=== PATIENT | female | born 1970 | race Caucasian/White ===

== ENCOUNTER 2017-01-08 17:03 | Emergency (ER) | payer OTHER ==
--- NOTE | 2017-01-08 18:10 | ED NURSING NOTES ---
Clinical Report - Nurses [facility] [address] [place] [address] 01/08/2017 17:05 Patient: KAYE POLLOCK TRIAGE Triage time 1750. Acuity: LEVEL 5. Chief Complaint: RIGHT EAR PAIN and (URI). Alert. No acute distress. (appears anxious, unable to sit still, unable to stay on task). --18:01 Angella Eli 17:57 01/08/17. BP: 152/97. HR: 80. RR: 18. O2 saturation: 100%. Temp: 98.4 F. Pain level now 9/10. --18:01 Angella Eli. Weight: 62.7 kg. Height/Length: 63 inches. BMI: 24.5. --17:57 Angella Eli. Medications Antidpressant. --17:58 Angella Eli. Allergies No Known Drug Allergy. --17:58 Angella Eli. History Arrived by private vehicle. Historian: patient. Accompanied by family. Onset. (2 hours ago). 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 PAST MEDICAL HX: Immunizations: up-to-date. SOCIAL HX: Light tobacco smoker (cigarette)- less than 1/2 a pack per day. Occasional alcohol use. FALL RISK ASSESSMENT: Fall risk assessment completed. No fall risk identified. NUTRITIONAL RISK ASSESSMENT: The nutritional risk assessment revealed no deficiencies. FUNCTIONAL ASSESSMENT: Functional assessment: no impairments noted. LEARNING NEEDS ASSESSMENT: The learning needs assessment revealed no barriers. SKIN INTEGRITY ASSESSMENT: Skin integrity risk assessment completed. No skin integrity risk identified. --18:01 Angella Eli. PROBLEMS: Depression. --17:59 Angella Eli. ADDITIONAL SURGERIES: Appendectomy. . Tubal Ligation. --17:59 Angella Eli. Interventions ID band on patient. To treatment room. --18:01 Angella Eli. PHYSICAL ASSESSMENT Ambulatory to room. GENERAL / NEURO / PSYCH: Alert. Appears anxious. HEENT: No facial asymmetry noted. Pupils equal, round and reactive to light. ( ear exam deferred to Provider). RESPIRATORY: Respirations not labored. CVS: Capillary refill less than 2 seconds. SKIN: Skin is warm and dry. --18:01 Angella Eli. NURSING PROGRESS NOTES Call light placed in reach. Bed placed in lowest position. Brakes of bed on. Patient ready for evaluation- chart flagged. --18:01 Angella Eli 18:21 01/08/2017 Toradol (Ketorolac Tromethamine) IM 60 mg given. Given in the right gluteus tara. Allergies verified and confirmed 5 rights. --18:21 Angella Eli. DISPOSITION / DISCHARGE Departure time: 1820. Condition at departure: unchanged and stable. Discharge instructions provided and reviewed with the patient. Reviewed medication(s). Patient verbalized understanding. Written instructions provided in [place]. The patient was discharged by the nurse practitioner. She was discharged home and accompanied by family. She left the Emergency Department ambulatory and via private vehicle. Patient driving. --18:23 Angella Eli. Locked/Released at 01/08/2017 18:23 by Angella Eli,
--- NOTE | 2017-01-08 18:10 | ED CLINICAL REPORT ---
Clinical Report - Physicians/Mid Levels [facility] [address] [place] [address] 01/08/2017 17:05 Patient: KAYE POLLOCK Time Seen: 17:53; initial patient contact, initial documentation, patient care assumed. Arrived- By private vehicle. Historian- patient. HISTORY OF PRESENT ILLNESS Chief Complaint: COUGH, SORE THROAT and SINUS PAIN. This started about 10 days ago and is still present. The illness is described as moderate. The patient has had a cough, nasal congestion, sinus pressure, sinus drainage and a nasal discharge. She has had moderate amounts of thick, yellow, green sputum. No difficulty breathing, chest pain or fever. 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 Additional history - No known contact with a sick individual. No recent travel. Similar symptoms previously: None. Recent medical care: Not recently seen/assessed. REVIEW OF SYSTEMS The patient has had a headache. All systems otherwise negative, except as recorded above. PAST HISTORY See nurses notes. PROBLEMS: Depression. --17:59 Angella Eli. ADDITIONAL SURGERIES: Appendectomy. . Tubal Ligation. --17:59 Angella Eli. SOCIAL HISTORY Light tobacco smoker. Occasional alcohol use. Not exposed to second-hand smoke at home. No drug use. No recent travel. Is a local resident. FAMILY HISTORY Negative. ADDITIONAL NOTES The nursing notes have been reviewed with agreement regarding the chief complaint, HPI, ROS, PMH and patient medications and allergies. PHYSICAL EXAM Vital Signs: 01/08/2017 17:57 BP: 152/97. HR: 80. RR: 18. O2 saturation: 100%. Temp: 98.4 F. Have been reviewed as abnormal and appear to be correct. Hypertensive. Heart rate normal. Respiratory rate normal. Temperature normal. Oxygen saturation normal. Appearance: Alert. No acute distress. Eyes: Pupils equal, round and reactive to light. Eyes normal inspection. ENT: Ears not normal. Right TM reveals bulging and severe erythema. No abnormality of left ear. Nose normal. Pharynx normal. Uvula midline. Neck: Normal inspection. Neck supple. CVS: Normal heart rate and rhythm. Heart sounds normal. Pulses normal. Respiratory: No respiratory distress. Breath sounds normal. Back: Normal inspection. Skin: Skin warm and dry. Normal skin color. No rash. Normal skin turgor. Extremities: Extremities exhibit normal ROM. No lower extremity edema. Neuro: Oriented X 3. No motor deficit. No sensory deficit. PROGRESS AND PROCEDURES Patient counseled in person regarding the patient's stable condition and diagnosis. 18:09. Differential Diagnosis: Other possible considerations: flu, uri, viral illness, sinusitis, bronchitis, pneumonia, aoe, aom. Above considerations are based on history and physical exam. Differential diagnosis was discussed with patient. Disposition: Discharged home in good and improved condition (18:09). Condition: good and stable. CLINICAL IMPRESSION Acute sinusitis Acute suppurative right otitis media. No perforation of right tympanic membrane. INSTRUCTIONS Drink plenty of fluids. Warnings: GENERAL WARNINGS: Return or contact your physician immediately if your condition worsens or changes unexpectedly, if not improving as expected, or if other problems arise. Specifically return if problem worsens. Prescription Medications: Nasacort nasal spray: 2 sprays in each nostril once daily as needed for allergies. Dispense one (1) unit. No refills. Substitution is permissible. Amoxicillin 500 mg tablets: Take 1 orally every 8 hours for 10 days. Dispense thirty (30). No refills. Motrin 800 mg tablets: take 1 tablet orally every 8 hours as needed for pain. Dispense thirty (30). No refills. Substitution is permissible. OTC Medications: Sudafed 120 mg extended release tabs (available over the counter): take 1 tablet orally every 12 hours for 5 days. Dispense ten (10). No refill. Follow-up: Follow up with your doctor in about three days even if well. Call for an appointment. Summary of care provided to patient. Screening today revealed the patient's blood pressure to be in the hypertensive range. The patient should follow up with a primary care provider for blood pressure management. Understanding of the discharge instructions verbalized by patient. (Electronically signed by Isabel Jones A.R.N.P. 01/08/2017 18:33)
--- NOTE | 2017-01-08 18:10 | ED NURSING NOTES ---
Clinical Report - Nurses [facility] [address] [place] [address] 01/08/2017 17:05 Patient: KAYE POLLOCK TRIAGE Triage time 1750. Acuity: LEVEL 5. Chief Complaint: RIGHT EAR PAIN and (URI). Alert. No acute distress. (appears anxious, unable to sit still, unable to stay on task). --18:01 Angella Eli 17:57 01/08/17. BP: 152/97. HR: 80. RR: 18. O2 saturation: 100%. Temp: 98.4 F. Pain level now 9/10. --18:01 Angella Eli. Weight: 62.7 kg. Height/Length: 63 inches. BMI: 24.5. --17:57 Angella Eli. Medications Antidpressant. --17:58 Angella Eli. Allergies No Known Drug Allergy. --17:58 Angella Eli. History Arrived by private vehicle. Historian: patient. Accompanied by family. Onset. (2 hours ago). 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 PAST MEDICAL HX: Immunizations: up-to-date. SOCIAL HX: Light tobacco smoker (cigarette)- less than 1/2 a pack per day. Occasional alcohol use. FALL RISK ASSESSMENT: Fall risk assessment completed. No fall risk identified. NUTRITIONAL RISK ASSESSMENT: The nutritional risk assessment revealed no deficiencies. FUNCTIONAL ASSESSMENT: Functional assessment: no impairments noted. LEARNING NEEDS ASSESSMENT: The learning needs assessment revealed no barriers. SKIN INTEGRITY ASSESSMENT: Skin integrity risk assessment completed. No skin integrity risk identified. --18:01 Angella Eli. PROBLEMS: Depression. --17:59 Angella Eli. ADDITIONAL SURGERIES: Appendectomy. . Tubal Ligation. --17:59 Angella Eli. Interventions ID band on patient. To treatment room. --18:01 Angella Eli. PHYSICAL ASSESSMENT Ambulatory to room. GENERAL / NEURO / PSYCH: Alert. Appears anxious. HEENT: No facial asymmetry noted. Pupils equal, round and reactive to light. ( ear exam deferred to Provider). RESPIRATORY: Respirations not labored. CVS: Capillary refill less than 2 seconds. SKIN: Skin is warm and dry. --18:01 Angella Eli. NURSING PROGRESS NOTES Call light placed in reach. Bed placed in lowest position. Brakes of bed on. Patient ready for evaluation- chart flagged. --18:01 Angella Eli 18:21 01/08/2017 Toradol (Ketorolac Tromethamine) IM 60 mg given. Given in the right gluteus tara. Allergies verified and confirmed 5 rights. --18:21 Angella Eli. DISPOSITION / DISCHARGE Departure time: 1820. Condition at departure: unchanged and stable. Discharge instructions provided and reviewed with the patient. Reviewed medication(s). Patient verbalized understanding. Written instructions provided in [place]. The patient was discharged by the nurse practitioner. She was discharged home and accompanied by family. She left the Emergency Department ambulatory and via private vehicle. Patient driving. --18:23 Angella Eli. Locked/Released at 01/08/2017 18:23 by Angella Eli,
--- NOTE | 2017-01-08 18:10 | ED ORDER SUMMARY ---
..... Patient: HEAD, KAYE Carr OrderSheet [facility] VisitID: [id number] [address] [place] [address] 46y, F Registration Date/Time: 01/08/2017 ORDER SHEET Weight: 62.7 kg Allergies: No Known Drug Allergy GENERAL ORDERS: MEDICATION ORDERS: Toradol IM 60 mg (NOW) (18:05 01/08/2017 Gillian A.R.N.P.) (18:21 [facility]) IV FLUIDS: ORDER SHEET NOTES: [Electronically signed by Angella Eli (18:23 01/08/2017)] [Electronically signed by Isabel Jones A.R.N.P. (18:33 01/08/2017)] [Electronically locked/signed by Angella Eli (18:23 01/08/2017)]
--- NOTE | 2017-01-08 18:10 | ED ORDER SUMMARY ---
..... Patient: HEAD, KAYE Carr OrderSheet [facility] VisitID: [id number] [address] [place] [address] 46y, F Registration Date/Time: 01/08/2017 ORDER SHEET Weight: 62.7 kg Allergies: No Known Drug Allergy GENERAL ORDERS: MEDICATION ORDERS: Toradol IM 60 mg (NOW) (18:05 01/08/2017 Gillian A.R.N.P.) (18:21 [facility]) IV FLUIDS: ORDER SHEET NOTES: [Electronically signed by Angella Eli (18:23 01/08/2017)] [Electronically signed by Isabel Jones A.R.N.P. (18:33 01/08/2017)] [Electronically locked/signed by Angella Eli (18:23 01/08/2017)]
--- NOTE | 2017-01-08 18:34 | ED DISCHARGE INSTRUCTIONS ---
Patient: KAYE POLLOCK General Instructions [facility] VisitID: [id number] [place] [address] 46y, F Registration Date/Time: 01/08/2017 Acute sinusitis Acute suppurative right otitis media. No perforation of right tympanic membrane. INSTRUCTIONS Drink plenty of fluids. Warnings: GENERAL WARNINGS: Return or contact your physician immediately if your condition worsens or changes unexpectedly, if not improving as expected, or if other problems arise. Specifically return if problem worsens. Prescription Medications: Nasacort nasal spray: 2 sprays in each nostril once daily as needed for allergies. Dispense one (1) unit. No refills. Substitution is permissible. Amoxicillin 500 mg tablets: Take 1 orally every 8 hours for 10 days. Dispense thirty (30). No refills. Motrin 800 mg tablets: take 1 tablet orally every 8 hours as needed for pain. Dispense thirty (30). No refills. Substitution is permissible. OTC Medications: Sudafed 120 mg extended release tabs (available over the counter): take 1 tablet orally every 12 hours for 5 days. Dispense ten (10). No refill. Follow-up: Follow up with your doctor in about three days even if well. Call for an appointment. Summary of care provided to patient. Screening today revealed the patient's blood pressure to be in the hypertensive range. The patient should follow up with a primary care provider for blood pressure management. Understanding of the discharge instructions verbalized by patient. ADDITIONAL INFORMATION Sinusitis [Abx Tx] The sinuses are air-filled spaces within the bones of the face. They connect to the inside of the nose. Sinusitis is an inflammation of the tissue lining the sinus cavity. Sinus inflammation can occur during a cold or hay-fever (allergies to pollens and other particles in the air) and cause symptoms of sinus congestion and fullness. A sinus infection causes fever, headache and facial pain. There is usually green or yellow drainage from the nose or into the back of the throat (post-nasal drip). Antibiotics are prescribed to treat this condition. Home Care: Drink plenty of water, hot tea, and other liquids to stay well hydrated. This thins the mucus and promotes sinus drainage. Apply heat to the painful areas of the face. Use a towel soaked in hot water. Or, stain remover the shower and direct the hot spray onto your face. This is a good way to inhale warm water vapor and get heat on your face at the same time. (Cover your mouth and nose with your hands so you can still breathe as you do this.) Use a vaporizer with products such as Vicks VapoRub (contains menthol) at night. Suck on peppermint, menthol or eucalyptus hard candies during the day. An expectorant containing guaifenesin (such as Robitussin), helps to thin the mucus and promote drainage from the sinuses. Ytga-mwu-ilholkl decongestants may be used unless a similar medicine was prescribed. Nasal sprays work the fastest. Use one that contains phenylephrine (Drew-synephrine, Sinex and others) or oxymetazoline (Afrin). First blow the nose gently to remove mucus, then apply the drops. Do not use these medicines more often than directed on the label or for more than three days or symptoms may worsen. You may also use tablets containing pseudoephedrine (Sudafed). Many sinus remedies combine ingredients, which may increase side effects. Read the labels or ask the pharmacist for help. NOTE: Persons with high blood pressure should not use decongestants. They can raise blood pressure. Antihistamines are useful if allergies are a cause of your sinusitis. The mildest one is chlorpheniramine (available without a prescription). The dose for adults is 8-12mg three times a day. [NOTE: Do not use chlorpheniramine if you have glaucoma or if you are a man with trouble urinating due to an enlarged prostate.] Claritin (loratidine) is an antihistamine that causes less drowsiness and is a good alternative for daytime use. Do not use nasal rinses or irrigation during an acute sinus infection, unless advised by your doctor. Rinsing may spread the infection to other sinuses. You may use acetaminophen (Tylenol) or ibuprofen (Motrin, Advil) to control pain, unless another pain medicine was prescribed. [ NOTE: If you have chronic liver or kidney disease or ever had a stomach ulcer, talk with your doctor before using these medicines.] (Aspirin should never be used in anyone under 18 years of age who is ill with a fever. It may cause severe liver damage.) Finish the full course, even if you are feeling better after a few days. Follow Up with your doctor or this facility in one week or as instructed by our staff if not improving. Get Prompt Medical Attention if any of the following occur: Facial pain or headache becomes more severe Stiff neck Unusual drowsiness or confusion, or not acting like your normal self Swelling of the forehead or eyelids Vision problems including blurred or double vision Fever of 100.4F (38C) or higher, or as directed by your healthcare provider Seizure Middle Ear Infection (Adult) You have an infection of the middle ear (the space behind the eardrum). It can occur as a result of the common cold. This is because congestion can block the internal passage (eustachian tube) that drains fluid from the middle ear. When the middle ear fills with fluid, bacteria can grow there and cause an infection. Oral antibiotics are used to treat this illness, not ear drops. Symptoms usually start to improve within 1-2 days of treatment. Home Care: Finish all of the antibiotic medicine prescribed, even though you may feel better after the first few days. You may use acetaminophen (Tylenol) or ibuprofen (Motrin, Advil) to control pain, unless something else was prescribed. [NOTE: If you have chronic liver or kidney disease or have ever had a stomach ulcer or GI bleeding, talk with your doctor before using these medicines.] (Do not give aspirin to anyone under 18 years of age who is ill with a fever. It may cause severe liver damage.) Follow Up with your doctor or this facility in two weeks if all symptoms have not cleared, or if hearing does not return to normal within one month. Get Prompt Medical Attention if any of the following occur: Ear pain gets worse or does not improve after three days of treatment Unusual drowsiness or confusion Neck pain, stiff neck or headache Fluid or blood draining from the ear canal Fever of 100.4F (38C) or higher after 3 days of antibiotics, or as directed by your healthcare provider Convulsion (seizure) Triamcinolone Acetonide Nasal spray What is this medicine? TRIAMCINOLONE (trye am SIN oh lone) nasal spray is a corticosteroid. It is used to treat the nasal symptoms of seasonal and year round allergies. How should I use this medicine? This medicine is for use in the nose. Follow the directions on your prescription label. This medicine works best if used regularly. Do not use more often than directed. Make sure that you are using your nasal spray correctly. Ask you doctor or health care provider if you have any questions. Talk to your fitness assistant regarding the use of this medicine in children. While this drug may be prescribed for children as young as 2 years of age for selected conditions, precautions do apply. What side effects may I notice from receiving this medicine? Side effects that you should report to your doctor or health urgent care physician assistant as soon as possible: allergic reactions like skin rash, itching or hives, swelling of the face, lips, or tongue change in vision dizziness infection nosebleed, burning in the nose trouble breathing, wheezing unusual bruising white patches or sores in the nose Side effects that usually do not require medical attention (report to your doctor or health urgent care physician assistant if they continue or are bothersome): congestion cough headache nausea runny nose sneezing What may interact with this medicine? Interactions are not expected. What if I miss a dose? If you miss a dose, take it as soon as you can. If it is almost time for your next dose, take only that dose. Do not take double or extra doses. Where should I keep my medicine? Keep out of the reach of children. Store at room temperature between 20 and 25 degrees C (68 and 77 degrees F). Throw away the canister after 120 sprays or after the expiration date, whichever comes first. What should I tell my health care provider before I take this medicine? They need to know if you have any of these conditions: infection, like tuberculosis, herpes, or fungal infection recent surgery or injury of nose or sinuses taking corticosteroids by mouth an unusual or allergic reaction to triamcinolone, corticosteroids, other medicines, foods, dyes, or preservatives or trying to get breast-feeding What should I watch for while using this medicine? Check with your doctor or health urgent care physician assistant if your symptoms do not improve in 1 week of regular use or if they get worse. Do not come in contact with people who have chickenpox or the measles while you are taking this medicine. If you do, call your doctor right away. Amoxicillin Trihydrate Oral tablet What is this medicine? AMOXICILLIN (a mox i ALPHONSO in) is a penicillin antibiotic. It is used to treat certain kinds of bacterial infections. It will not work for colds, flu, or other viral infections. How should I use this medicine? Take this medicine by mouth with a glass of water. Follow the directions on your prescription label. You may take this medicine with food or on an empty stomach. Take your medicine at regular intervals. Do not take your medicine more often than directed. Take all of your medicine as directed even if you think your are better. Do not skip doses or stop your medicine early. Talk to your fitness assistant regarding the use of this medicine in children. While this drug may be prescribed for selected conditions, precautions do apply. What side effects may I notice from receiving this medicine? Side effects that you should report to your doctor or health urgent care physician assistant as soon as possible: allergic reactions like skin rash, itching or hives, swelling of the face, lips, or tongue breathing problems dark urine redness, blistering, peeling or loosening of the skin, including inside the mouth seizures severe or watery diarrhea trouble passing urine or change in the amount of urine unusual bleeding or bruising unusually weak or tired yellowing of the eyes or skin Side effects that usually do not require medical attention (report to your doctor or health urgent care physician assistant if they continue or are bothersome): dizziness headache stomach upset trouble sleeping What may interact with this medicine? amiloride control pills chloramphenicol macrolides probenecid sulfonamides tetracyclines What if I miss a dose? If you miss a dose, take it as soon as you can. If it is almost time for your next dose, take only that dose. Do not take double or extra doses. Where should I keep my medicine? Keep out of the reach of children. Store between 68 and 77 degrees F (20 and 25 degrees C). Keep bottle closed tightly. Throw away any unused medicine after the expiration date. What should I tell my health care provider before I take this medicine? They need to know if you have any of these conditions: asthma kidney disease an unusual or allergic reaction to amoxicillin, other penicillins, cephalosporin antibiotics, other medicines, foods, dyes, or preservatives or trying to get breast-feeding What should I watch for while using this medicine? Tell your doctor or health urgent care physician assistant if your symptoms do not improve in 2 or 3 days. Take all of the doses of your medicine as directed. Do not skip doses or stop your medicine early. If you are diabetic, you may get a false positive result for sugar in your urine with certain brands of urine tests. Check with your doctor. Do not treat diarrhea with byxe-daj-lnzvrpz products. Contact your doctor if you have diarrhea that lasts more than 2 days or if the diarrhea is severe and watery. Ibuprofen Oral tablet What is this medicine? IBUPROFEN (eye BYOO proe fen) is a non-steroidal anti-inflammatory drug (NSAID). It is used for dental pain, fever, headaches or migraines, osteoarthritis, rheumatoid arthritis, or painful monthly periods. It can also relieve minor aches and pains caused by a cold, flu, or sore throat. How should I use this medicine? Take this medicine by mouth with a glass of water. Follow the directions on the prescription label. Take this medicine with food if your stomach gets upset. Try to not lie down for at least 10 minutes after you take the medicine. Take your medicine at regular intervals. Do not take your medicine more often than directed. A special MedGuide will be given to you by the pharmacist with each prescription and refill. Be sure to read this information carefully each time. Talk to your fitness assistant regarding the use of this medicine in children. Special care may be needed. What side effects may I notice from receiving this medicine? Side effects that you should report to your doctor or health urgent care physician assistant as soon as possible: allergic reactions like skin rash, itching or hives, swelling of the face, lips, or tongue black or bloody stools, blood in the urine or in vomit breathing problems changes in vision chest pain general ill feeling or flu-like symptoms nausea or vomiting redness, blistering, peeling or loosening of the skin, including inside the mouth slurred speech or weakness on one side of the body stomach pain unexplained weight gain or swelling unusually weak or tired yellowing of eyes or skin Side effects that usually do not require medical attention (report to your doctor or health urgent care physician assistant if they continue or are bothersome): constipation or diarrhea dizziness gas or heartburn stomach upset What may interact with this medicine? Do not take this medicine with any of the following medications: cidofovir ketorolac methotrexate pemetrexed This medicine may also interact with the following medications: alcohol aspirin diuretics lithium other drugs for inflammation like prednisone warfarin What if I miss a dose? If you miss a dose, take it as soon as you can. If it is almost time for your next dose, take only that dose. Do not take double or extra doses. Where should I keep my medicine? Keep out of the reach of children. Store at room temperature between 15 and 30 degrees C (59 and 86 degrees F). Keep container tightly closed. Throw away any unused medicine after the expiration date. What should I tell my health care provider before I take this medicine? They need to know if you have any of these conditions: asthma cigarette smoker drink more than 3 alcohol containing drinks a day heart disease or circulation problems such as heart failure or leg edema (fluid retention) high blood pressure kidney disease liver disease stomach bleeding or ulcers an unusual or allergic reaction to ibuprofen, aspirin, other NSAIDS, other medicines, foods, dyes, or preservatives or trying to get breast-feeding What should I watch for while using this medicine? Tell your doctor or healthcare professional if your symptoms do not start to get better or if they get worse. This medicine does not prevent heart attack or stroke. In fact, this medicine may increase the chance of a heart attack or stroke. The chance may increase with longer use of this medicine and in people who have heart disease. If you take aspirin to prevent heart attack or stroke, talk with your doctor or health urgent care physician assistant. Do not take other medicines that contain aspirin, ibuprofen, or naproxen with this medicine. Side effects such as stomach upset, nausea, or ulcers may be more likely to occur. Many medicines available without a prescription should not be taken with this medicine. This medicine can cause ulcers and bleeding in the stomach and intestines at any time during treatment. Ulcers and bleeding can happen without warning symptoms and can cause . To reduce your risk, do not smoke cigarettes or drink alcohol while you are taking this medicine. You may get drowsy or dizzy. Do not drive, use machinery, or do anything that needs mental alertness until you know how this medicine affects you. Do not stand or sit up quickly, especially if you are an older patient. This reduces the risk of dizzy or fainting spells. This medicine can cause you to bleed more easily. Try to avoid damage to your teeth and gums when you brush or floss your teeth. Pseudoephedrine Hydrochloride Oral tablet [Abuse Deterrent] What is this medicine? PSEUDOEPHEDRINE (jim orellana e FED rin) is a decongestant. It is used to treat congestion of the nose or sinuses. How should I use this medicine? Take this medicine by mouth with a glass of water. Follow the directions on the package or prescription label. Take your medicine at regular intervals. Do not take your medicine more often than directed. Talk to your fitness assistant regarding the use of this medicine in children. While this drug may be prescribed for children as young as 6 years of age for selected conditions, precautions do apply. Patients over 65 years old may have a stronger reaction and need a smaller dose. What side effects may I notice from receiving this medicine? Side effects that you should report to your doctor or health urgent care physician assistant as soon as possible: allergic reactions like skin rash, itching or hives, swelling of the face, lips, or tongue bloody diarrhea with stomach pain breathing problems chest pain confused, agitated, nervous fast, irregular heartbeat feeling faint or lightheaded, falls hallucinations high blood pressure pain, tingling, numbness in the hands or feet trouble passing urine or change in the amount of urine trouble sleeping Side effects that usually do not require medical attention (report to your doctor or health urgent care physician assistant if they continue or are bothersome): headache loss of appetite nausea, stomach upset What may interact with this medicine? Do not take this medicine with any of the following medications: bromocriptine ergot alkaloids like dihydroergotamine, ergonovine, ergotamine, methylergonovine MAOIs like Carbex, Eldepryl, Marplan, Nardil, and Parnate stimulant medicines for attention disorders, weight loss, or to stay awake This medicine may also interact with the following medications: alcohol atropine bretylium caffeine digoxin linezolid mecamylamine medicines for blood pressure medicines for depression, anxiety, or psychotic disturbances like fluoxetine, sertraline medicines for enlarged prostate medicines for sleep other medicines for cold, cough, or allergy procarbazine reserpine some heart medicines like metoprolol Urszula's Wort What if I miss a dose? If you miss a dose, take it as soon as you can. If it is almost time for your next dose, take only that dose. Do not take double or extra doses. Where should I keep my medicine? Keep out of the reach of children. Store at room temperature between 15 and 25 degrees C (59 and 77 degrees F). Protect from heat and moisture. Throw away any unused medicine after the expiration date. What should I tell my health care provider before I take this medicine? They need to know if you have any of the following conditions: diabetes glaucoma heart disease high blood pressure kidney disease prostate trouble taken an MAOI like Carbex, Eldepryl, Marplan, Nardil, or Parnate in last 14 days thyroid disease trouble passing urine an unusual or allergic reaction to pseudoephedrine, other medicines, foods, dyes, or preservatives or trying to get breast-feeding What should I watch for while using this medicine? Tell your doctor or healthcare professional if your symptoms do not start to get better or if they get worse. See your doctor if you are not better in 7 days or if you have a fever. You have been given the following additional information: Sinusitis, Abx Tx Otitis Media, Abx Tx (Adult) Triamcinolone Acetonide Nasal spray Amoxicillin Trihydrate Oral tablet Ibuprofen Oral tablet Pseudoephedrine Hydrochloride Oral tablet [Abuse Deterrent] (Electronically signed by Isabel Jones A.R.NAleenaPAleena 01/08/2017 18:33)
--- NOTE | 2017-01-08 18:35 | ED MAR SUMMARY ---
..... Medication Administration Record [facility] [address] [place] [address] Patient: KAYE POLLOCK Visit ID: [id number] 46y, F Weight: 62.7 kg Height/Length: 63 in BMI: 24.5 ALLERGIES: No Known Drug Allergy Given 18:21 01/08/2017 Angella Eli, Medication Administered: TORADOL [IM] (KETOROLAC TROMETHAMINE), Dose: 60 mg IM. Medication Ordered: Toradol IM 60 mg (NOW).
--- NOTE | 2017-01-08 18:35 | ED MED RECONCILIATION SUMMARY ---
Patient: KAYE POLLOCK Medication Reconciliation Report [facility] VisitID: [id number] [address] [place] [address] 46y, F Registration Date/Time: 01/08/2017 Weight: 62.7 kg Height/Length: 63 in. BMI: 24.5 ALLERGIES: No Known Drug Allergy The patient's Home Medications are listed below: THE FOLLOWING MEDICATIONS NEED TO BE RECONCILED: Antidpressant The source(s) of the original Home Medication information: Not obtained. The following Medications were given to the patient in the Emergency Department: Toradol [IM] IM 60 mg, administered: 01/08/2017 6:21:00 PM The following Medications were prescribed to the patient: Nasacort nasal spray: 2 sprays in each nostril once daily as needed for allergies. Dispense one (1) unit. No refills. Substitution is permissible. -- Isabel Jones A.R.N.P. Amoxicillin 500 mg tablets: Take 1 orally every 8 hours for 10 days. Dispense thirty (30). No refills. -- Isabel Jones, Darin.R.N.P. Motrin 800 mg tablets: take 1 tablet orally every 8 hours as needed for pain. Dispense thirty (30). No refills. Substitution is permissible. -- Isabel Jones A.R.N.P. Sudafed 120 mg extended release tabs (available over the counter): take 1 tablet orally every 12 hours for 5 days. Dispense ten (10). No refill. -- Isabel Jones A.R.N.P.
--- NOTE | 2017-01-08 18:35 | ED MED RECONCILIATION SUMMARY ---
Patient: KAYE POLLOCK Medication Reconciliation Report [facility] VisitID: [id number] [address] [place] [address] 46y, F Registration Date/Time: 01/08/2017 Weight: 62.7 kg Height/Length: 63 in. BMI: 24.5 ALLERGIES: No Known Drug Allergy The patient's Home Medications are listed below: THE FOLLOWING MEDICATIONS NEED TO BE RECONCILED: Antidpressant The source(s) of the original Home Medication information: Not obtained. The following Medications were given to the patient in the Emergency Department: Toradol [IM] IM 60 mg, administered: 01/08/2017 6:21:00 PM The following Medications were prescribed to the patient: Nasacort nasal spray: 2 sprays in each nostril once daily as needed for allergies. Dispense one (1) unit. No refills. Substitution is permissible. -- Isabel Jones A.R.N.P. Amoxicillin 500 mg tablets: Take 1 orally every 8 hours for 10 days. Dispense thirty (30). No refills. -- Isabel Jones, Darin.R.N.P. Motrin 800 mg tablets: take 1 tablet orally every 8 hours as needed for pain. Dispense thirty (30). No refills. Substitution is permissible. -- Isabel Jones A.R.N.P. Sudafed 120 mg extended release tabs (available over the counter): take 1 tablet orally every 12 hours for 5 days. Dispense ten (10). No refill. -- Isabel Jones A.R.N.P.
--- NOTE | 2017-01-08 18:35 | ED MAR SUMMARY ---
..... Medication Administration Record [facility] [address] [place] [address] Patient: KAYE POLLOCK Visit ID: [id number] 46y, F Weight: 62.7 kg Height/Length: 63 in BMI: 24.5 ALLERGIES: No Known Drug Allergy Given 18:21 01/08/2017 Anglela Eli, Medication Administered: TORADOL [IM] (KETOROLAC TROMETHAMINE), Dose: 60 mg IM. Medication Ordered: Toradol IM 60 mg (NOW).
== END 2017-01-08 18:20 | disposition home or self-care (01) ==
LOC: ED SRH 17:03
DX: J01.90 Acute sinusitis, unspecified (principal); H66.001 Acute suppurative otitis media without spontaneous rupture of ear drum, right ear; F17.210 Nicotine dependence, cigarettes, uncomplicated